=== PATIENT | male | born 2005 ===

== ENCOUNTER 2023-12-16 08:11 | Day surgery (SDC) | payer OTHER ==
[~2023-12-16] VITALS: Ht 182.9 cm; Wt 128.6 kg
[~2023-12-16 08:11] MED LIST: LR 1,000 ML IV SCH; Ondansetron 4 MG/2 ML VIAL IV PRN
[2023-12-16 09:00] VITALS: BP 146/80; PULSE 88; TEMP 97.6
[2023-12-16 10:20] VITALS: BP 117/78; PULSE 64; TEMP 97.7
[2023-12-16 10:30] VITALS: BP 115/83; PULSE 73
--- NOTE | 2023-12-16 10:50 | NUR ---
1020- PATIENT RETUR[place] [facility]. PT AWAKE AND ALERT. RESPIRATIONS UNLABORED. AMBULATED TO RECLINER CHAIR WITH 2:1 SBA. PT DENIES NAUSEA OR ABDOMINAL PAIN. HOOKED UP TO MONITOR AND VS OBTAINED. CALL LIGHT AT SIDE AND GIRLFRIEND PRESENT. 1025- PATIENT TOLERATING APPLE JUICE AND MUFFIN WITHOUT NAUSEA OR ABD PAIN. 1034- D/C INSTRUCTIONS REVIEWED WITH PATIENT. PT VERBALIZED UNDERSTANDING AND A COPY OF INSTRUCTIONS PROVIDED IN D/C FOLDER. 1036- DR. HUNTER IN ROOM SPEAKING WITH PATIENT. 1045- PATIENT DRESSES SELF. 1050- PATIENT DISCHARGED FROM UNIT VIA W/C TO A PERSONAL VEHICLE. PT LEFT HOSPITAL IN STABLE CONDITION.
== END 2023-12-16 10:50 | disposition home or self-care (01) ==
LOC: SDCO 08:11
DX: K63.89 Other specified diseases of intestine (principal); K64.0 First degree hemorrhoids; K92.1 Melena
CPT/HCPCS: J2704; J7120